=== PATIENT | female | born 1995 | race American Indian/Alaskan Native ===

== ENCOUNTER 2021-10-08 18:36 | Emergency (ER) | payer SELFPAY ==
[2021-10-08 18:46] VITALS: BP 129/68
--- NOTE | 2021-10-08 19:46 | Emergency Department Report ---
Upper Extremity - HPI Chief Complaint: Extremity Injury, Upper Stated Complaint: JOINT PETERSON/DRAINAGE Time Seen by Provider: 10/08/21 19:07 Other History: Patient is a 26-year-old female presents emergency room complaints of left upper arm pain that began tonight. Patient states that she pulled too quickly and then began feeling the pain. She reports that she had surgery from her humerus fracture by Dr. Huang in [place] in August. She states that she has not had any complications since then. She is currently in a splint. She denies any fever, drainage, swelling, redness, numbness, weakness. No allergies to medications. ED Review of Systems ROS: Stated complaint: JOINT PETERSON/DRAINAGE Other details as noted in HPI Comment: All other systems reviewed and negative ED Past Medical Hx - Past Medical History Previous Medical History?: No - Surgical History Past Surgical History?: Yes Additional Surgical History: LEFT ELBOW Upper Extremity Exam - Exam General: Vital signs noted. No distress. Alert and acting appropriately. Arm Exam: Yes Arm/Humerus Tenderness (ttp to the left humerus, there is healed incision in place that appears clean, dry, intact without signs of infection, no edema, no deformity, no ecchymosis), No Arm Deformity Elbow: Yes Normal Range of Motion in Elbow, No Elbow Tenderness, No Elbow Deformity Forearm: No Forearm Tenderness, No Forearm Deformity Wrist: No Wrist Tenderness, No Normal ROM in Wrist, No Wrist Deformity, No Snuffbox Tenderness Hand: Yes Normal ROM in Digit(s), No Digit(s) Deformity, No Tendon Dysfunction CMS Exam: Yes Normal Distal Pulses, Yes Normal Capillary Refill, Yes Normal Distal Sensation, No Broken Skin ED Course Vital Signs 10/08/21 18:42 Temperature 97.9 F Pulse Rate 94 H Respiratory 16 Rate Blood Pressure 129/68 [Right] O2 Sat by Pulse 100 Oximetry ED Medical Decision Making - Medical Decision Making Patient is a 26-year-old female presents emergency room complaints of left upper arm pain that began tonight. Patient states that she pulled too quickly and then began feeling the pain. She reports that she had surgery from her humerus fracture by Dr. Huang in [place] in August. She states that she has not had any complications since then. She is currently in a splint. She denies any fever, drainage, swelling, redness, numbness, weakness. No allergies to medications. Vitals are normal. On exam ttp to the left humerus, there is healed incision in place that appears clean, dry, intact without signs of infection, no edema, no deformity, no ecchymosis. No signs of infection or septic joint. Ordered x- ray to assess hardware and previous fracture. Patient was agreeable with plan. When x-ray came to get patient I was advised by x-ray that patient is declining x-ray. patient states that she is just going to go home and follow-up with her orthopedic doctor. I advised patient she would have to leave AGAINST MEDICAL ADVICE, as we are not able to assess injury or hardware malfunction, I discussed the risk associated with doing so. The patient is alert and oriented x3. The patient exhibits decision-making capacity. The patient is free from distracting injury. The risk of leaving without a complete medical examination, and AGAINST MEDICAL ADVICE, were explained to the patient, and they included , disability, paralysis, permanent loss of quality of life. Patient verbalized understanding to these and was able to articulate these risk in their own words. Critical care attestation.: If time is entered above; I have spent that time in minutes in the direct care of this critically ill patient, excluding procedure time. ED Disposition Clinical Impression: Pain of left humerus Disposition: 07 LEFT AGAINST MEDICAL ADVICE Is pt being admited?: No Does the pt Need Aspirin: No Condition: Stable Time of Disposition: 19:46 Print Language: [place]
== END 2021-10-08 20:41 | disposition left against medical advice (07) ==
LOC: ED 18:36
DX: M79.622 Pain in left upper arm (principal)
CPT/HCPCS: 99282